=== PATIENT | female | born 1960 | race Hispanic/Latino ===

== ENCOUNTER 2025-01-28 19:47 | Emergency (ER) | payer MEDICARE ==
[~2025-01-28] VITALS: Ht 157.5 cm; Wt 89.8 kg
[2025-01-28] MEDS: SODIUM CHLORIDE 0.9% 1000ML 1,000 ML IV ONE (22:14)
[2025-01-28] MEDS: KETOROLAC TROMETHAMINE 30 MG/ML VIAL IV STA (22:14)
[2025-01-28 23:15] VITALS: PULSE 95; RESP 16; TEMP 99.9
[2025-01-28] MEDS ORDERED: PAXLOVID 300-11 EAC1 PO (23:15)
[2025-01-28 23:17] VITALS: BP 128/61; PULSE 93; RESP 16; TEMP 99.9; O2SAT 96
== END 2025-01-28 23:23 | disposition home or self-care (01) ==
LOC: FSED 20:10
DX: R06.02 Shortness of breath (principal); U07.1 COVID-19; E11.9 Type 2 diabetes mellitus without complications; E66.9 Obesity, unspecified
CPT/HCPCS: 0223U; 80053; 85025; 87400; 96374; 99284; J1885; J7030